=== PATIENT | female | born 1955 | race Hispanic/Latino ===

== ENCOUNTER 2023-10-11 13:42 | Outpatient (RCR) | payer MEDICARE ==
[~2023-10-11 13:42] MED LIST: ASPIRIN81 MG PO; ATORVASTATIN CA10 MG PO; CHOLECALCIFEROL1 GM PO; CYCLOBENZAPRINE10 MG PO; FLECTOR1 EACH TD; MELOXICAM7.5 MG PO; METFORMIN HCL500 MG PO; OZEMPIC2 MG/0.75; SERTRALINE HCL50 MG PO; TYLENOL EXTRA500 MG PO
== END 2023-10-18 ==
LOC: PT 13:42
PROVIDERS: ATTEND Physician Assistant
DX: Z47.1 Aftercare following joint replacement surgery (principal); Z96.641 Presence of right artificial hip joint; M25.551 Pain in right hip; M62.81 Muscle weakness (generalized); R26.2 Difficulty in walking, not elsewhere classified

== ENCOUNTER 2023-10-20 11:46 | Outpatient (RCR) | payer MEDICARE | END 2023-11-18 | LOC: PT 11:46 | PROVIDERS: ATTEND Physician Assistant | DX: Z47.1 Aftercare following joint replacement surgery (principal); Z96.641 Presence of right artificial hip joint ==